=== PATIENT | male | born 2000 ===

== ENCOUNTER 2020-02-02 14:36 | Outpatient (REF) | payer OTHER, SELFPAY ==
[2020-02-02 15:23] LABS: COVID-19 Test Negative (Negative)
== END 2020-02-02 14:37 | disposition home or self-care (01) ==
LOC: HO.EMPCOV 14:36
PROVIDERS: Visit Provider Internal Medicine
DX: Z20.828 Contact with and (suspected) exposure to other viral communicable diseases (principal)
CPT/HCPCS: 87635; C9803

== ENCOUNTER 2020-04-20 13:43 | Outpatient (REF) | payer OTHER, SELFPAY ==
[2020-04-20 14:12] LABS: COVID-19 Test Negative (Negative)
== END 2020-04-20 13:44 | disposition home or self-care (01) ==
LOC: HO.EMPCOV 13:43
PROVIDERS: Visit Provider Internal Medicine
DX: Z11.52 Encounter for screening for COVID-19 (principal)
CPT/HCPCS: 36415; 87635; C9803

== ENCOUNTER 2020-06-18 10:42 | Outpatient (REF) | payer OTHER, SELFPAY ==
[2020-06-18 11:00] LABS: COVID-19 Test Negative (Negative)
== END 2020-06-18 10:43 | disposition home or self-care (01) ==
LOC: HO.EMPCOV 10:42
PROVIDERS: Visit Provider Internal Medicine
DX: Z20.822 Contact with and (suspected) exposure to COVID-19 (principal)
CPT/HCPCS: 36415; 87635; C9803

== ENCOUNTER 2023-01-03 07:14 | Emergency (ER) | payer OTHER, MEDICAID, SELFPAY ==
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
[2023-01-03 07:45] VITALS: BP 154/79; PULSE 86; RESP 16; TEMP 36.7; O2SAT 97; BMI 22.0
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
[2023-01-03] MEDS: Acetaminophen 325 MG TABLET 975 MG PO (11:16)
[2023-01-03] MEDS: predniSONE 20 MG TABLET 40 MG PO (11:16)
[2023-01-03 11:25] VITALS: BP 138/77; PULSE 82; RESP 18; TEMP 36.7; O2SAT 99
[2023-01-03 13:47] VITALS: BP 121/72; PULSE 80; RESP 18; TEMP 36.8; O2SAT 98
== END 2023-01-03 14:24 | disposition home or self-care (01) ==
PROVIDERS: Emergency Provider Emergency Medicine
DX: S13.4XXA Sprain of ligaments of cervical spine, initial encounter (principal); V43.52XA Car driver injured in collision with other type car in traffic accident, initial encounter; Y93.9 Activity, unspecified; Y92.9 Unspecified place or not applicable; Y99.9 Unspecified external cause status; M54.2 Cervicalgia
CPT/HCPCS: 70450; 72125; 99283; 99284

== ENCOUNTER 2023-06-01 15:52 | Emergency (ER) | payer MEDICAID, SELFPAY ==
[2023-06-01 16:35] VITALS: BP 127/79; PULSE 80; RESP 18; TEMP 36.8; O2SAT 98; BMI 23.0
--- NOTE | 2023-06-01 16:35 | ED_ITS ---
HPI - General Adult General Chief complaint: Wound/Laceration Stated complaint: hand lac Time Seen by Provider: 06/01/23 18:05 Source: patient Mode of arrival: ambulatory Limitations: no limitations History of Present Illness HPI narrative: 22-year-old male presents with a small laceration to the palmar aspect of left hand, patient reports tried to cut something with a blade, accidentally cut himself. Up-to-date on tetanus shot. Denies numbness and tingling. No other injuries. Bleeding controlled. Related Data Previous Rx's ?Medication ?Instructions ?Recorded naproxen 500 mg tablet 500 mg PO BID PRN pain 7 days #14 01/03/23 tabs bacitracin 500 unit/gram topical 1 appl topical Q8H #14 grams 06/01/23 ointment Allergies Allergy/AdvReac Type Severity Reaction Status Date / Time cat dander [CAT] Allergy Mild NASAL Verified 06/01/23 16:38 CONGESTION Review of Systems Review of Systems: Constitutional : No Fever, No Chills, Cardiovascular : No Chest Pain, No SOB Respiratory : No Dyspnea Gastrointestinal : No abdominal pain Musculoskeletal : No Joint Swelling Skin : No rash, positive skin laceration Neuro : No Weakness, No Numbness Psych : No SI/HI Yes all other systems are reviewed and are negative [facility] Past Medical History Attestation statement: The following information was validated with the patient. Source: old records reviewed and nursing notes reviewed Physical Exam ED Vital Signs: Vital Signs - 24 hr 06/01/23 16:35 06/01/23 18:10 Temperature 98.3 F 98.3 F Pulse Rate 80 80 Respiratory Rate 18 18 Blood Pressure 127/79 127/79 Pulse Oximetry 98 98 Oxygen Delivery Method Room Air Room Air BMI result Body Mass Index 23.0 vss Appearance: Alert.? Oriented X3.? No acute distress.? Head: Normocephalic, atraumatic, no step-offs or deformities Eyes: Pupils equal, round and reactive to light.? Neck: Normal inspection.? Neck supple.? CVS: Pulses normal.? Respiratory: No respiratory distress. Skin: Skin warm and dry.? Normal skin color.? Normal skin turgor.?+ 1 cm linear superficial lac to the thenar aspect of left hand . No visualized FB. Normal R hand. Normal sensation distally. 2+ radial pulses equal and bl. Cap refil <2 seconds uE digits b/l. Normal reposition, opposition and full painless rom to all digits b/l. Extremities: No lower extremity edema.? No calf ttp. 5/5 strength to bilateral upper and lower extremities Neuro: Oriented X 3.? No motor deficit.? No sensory deficit. CN 2-12 intact Course Course Course Narrative: This is an RME: Additional HPI, ROS, PE not included below will be deferred to primary provider. 22 yo m presents with puncture to left hand with razor. UTD on tetanus. Reevaluation(s) Reevaluation #1: area reval no bleeding. Educated patient on diagnosis and treatment plan, answered all question, patient verbalizes understanding. At this time patient will be discharged home, advised to return with new or worsening symptoms. Educated on worrisome signs and symptoms and when to return. At this time I feel comfortable discharge home. Time: 18:11 Medical Decision Making Medical Decision Making [facility] Narrative: 22 yo m UTD on tetanus presents w/ lac to l hand PE Skin warm and dry.? Normal skin color.? Normal skin turgor.?+ 1 cm linear superficial lac to the thenar aspect of left hand . No visualized FB. Normal R hand. Normal sensation distally. 2+ radial pulses equal and bl. Cap refil <2 seconds uE digits b/l. Normal reposition, opposition and full painless rom to all digits b/l. Hx and pe simple lac no fb . No signs of cellulits or abscess. No nv compromise or threat to limb. Plan pressure dressing. Reeval patients bleeding stopped dressing applied Differential Diagnosis Differential Diagnoses: The differential diagnosis associated with the presentation includes Hx and pe simple lac no fb . No signs of cellulits or abscess. No nv compromise or threat to limb. Admission/Observation Consideration of admission/observation: Escalation of care including admission/observation considered Tests considered The following testing was considered but not selected: unlikley fx/ dislocation no need for imaging Discharge Plan Discharge Clinical Impression: Puncture wound of left hand Patient Disposition: Home, Self-Care Instructions: Puncture Wound (ED) Additional Instructions: Take your medications as prescribed. If you were prescribed antibiotics today, it is important that you take your medication to their entirety, do not skip any doses, do not finish them early. Follow-up with your primary care provider this week. Return to the emergency department with new or worsening symptoms. In case of emergency call 911 Prescriptions: New bacitracin 500 unit/gram ointment 1 appl topical Q8H Qty: 14 0RF No Action naproxen 500 mg tablet 500 mg PO BID PRN (Reason: pain) 7 Days Qty: 14 0RF Referrals: Physician,None [Primary Care Provider] - 2 days Interventions: ED Discharge Assessment Last Done: 06/01/23 18:10 Print Language: Setswana
[2023-06-01 18:10] VITALS: BP 127/79; PULSE 80; RESP 18; TEMP 36.8; O2SAT 98
== END 2023-06-01 18:34 | disposition home or self-care (01) ==
LOC: HO.ED 18:23
PROVIDERS: Emergency Provider Emergency Medicine
DX: S61.432A Puncture wound without foreign body of left hand, initial encounter (principal); X58.XXXA Exposure to other specified factors, initial encounter; Y93.9 Activity, unspecified; Y92.9 Unspecified place or not applicable; Y99.9 Unspecified external cause status
CPT/HCPCS: 99282; 99283